=== PATIENT | female | born 1980 | race Hispanic/Latino ===

== ENCOUNTER 2018-05-22 04:25 | Inpatient (IN) | payer OTHER ==
[2018-05-21 12:07] LABS: RPR Titer ND
[2018-05-21 12:13] LABS: Urine Appearance CLEAR; Urine Bilirubin NEGATIVE (NEG); Urine Blood NEGATIVE (NEG); Urine Color YELLOW; Urine Glucose NEGATIVE (NEG); Urine Protein NEGATIVE (NEG); Urine Urobilinogen 0.2 mg/dL (0.2-1.0)
[2018-05-21 12:15] LABS: Urine Microscopic Reflex ORDER UMIC
[2018-05-21 12:16] LABS: Absolute Lymphocytes (CBC) 2.1 K/uL (0.7-4.9); Absolute Monocytes 0.9 K/uL (0.1-1.3); Absolute Neutrophil 7.9 K/uL (1.8-8.0); Basophils % 0.5 % (0-1.3); Eosinophils % 0.6 % (0-4.4); Hematocrit 35.3 % (36.0-45.0); Lymphocytes % 18.6 % (15.3-44.8); MCH 29.6 pg (27.0-35.0); MPV 9.3 fL (7.6-11.3); Monocytes % 8.6 % (3.3-12.3); RBC Red Blood Cell Count 4.02 M/uL (3.86-4.86)
[2018-05-21 12:17] LABS: Protime INR 0.89
[2018-05-21 13:09] LABS: Urine Bacteria 20-50 /HPF (<20); Urine Culture Reflex Order REFLEXED; Urine RBC <5 /HPF (NONE SEEN)
--- NOTE | 2018-05-21 15:45 | PREOPHP ---
Date of Admission: 05/22/2018 History Of Present Illness: A 37-year-old, [place] female, 2, para 1, previous C-sectio n in [place]. No family history significant today's visit or during the . Full preop erative counseling concerning procedure and possible complications including infection; blood loss; a nesthetic complications; injury to bladder, bowel, ureter; postoperative complications; clots in legs ; pneumonia. The patient knows fully well this does not constitute all the possible problems that co uld occur during or following surgery. Allergies: SHE IS ALLERGIC TO PENICILLIN. WE USE CLEOCIN FOR PROPHYLAXIS. Medications: vitamins prior to admission. Social History: Does not smoke. Physical Examination: HEENT: Clear. Pupils equal, round, and reactive to light and accommodation. Conjunctivae well perf used. No oral, lingual, or buccal lesions. Abdomen: Baby is vertex, well applied to the cervix. Extremities: Clear. The patient does have pyogenic granuloma on one of her fingers on the left hand . We will send her to management consultant to confirm this, but it looks pretty classic. We will proceed with repeat section on Friday of this week. ANANT/MARY ALICE Voice ID: [id number]
[2018-05-21 20:28] LABS: RPR (Rapid Plasma Reagin) NON-REACT (NON-REACT)
[~2018-05-22 04:25] MED LIST: CLINDAMYCIN INJ 900 MG in NA CHLORIDE 0.9% 50 ML IV ONE
[2018-05-22] MEDS ORDERED: Ringers Lactate 1,000 ML IV PRN (05:20)
[2018-05-22] MEDS ORDERED: NA CIT/CITRIC AC 30 ML ORAL UDC PO ONE (05:24)
[2018-05-22] MEDS ORDERED: FAMOTIDINE 20 MG/2 ML VIAL IV ONE ×2 (05:25→05:32)
[2018-05-22] MEDS ORDERED: METOCLOPRAMIDE 10 MG/2mL INJ ONE (05:31)
[2018-05-22] MEDS ORDERED: Ringers Lactate 1,000 ML IV ONE (05:32)
[2018-05-22] MEDS ORDERED: CLINDAMYCIN 900MG/D5W 900 MG/50 ML BAG IV ONE (05:32)
[2018-05-22] MEDS ORDERED: NA CIT/CITRIC AC 30 ML ORAL UDC ONE (05:32)
[2018-05-22] MEDS ORDERED: METOCLOPRAMIDE 10 MG/2mL INJ IV SCH (06:00)
[2018-05-22] MEDS ORDERED: Ringers Lactate 1,000 ML IV SCH (06:00)
[2018-05-22 06:06] VITALS: BMI 38.9
[2018-05-22] MEDS ORDERED: CARBOPROST TROME 250 MCG/ML IM ONE (06:23)
[2018-05-22] MEDS ORDERED: METHYLERGONOVINE 0.2MG/ML AMP IM ONE (06:24)
[2018-05-22] MEDS ORDERED: EPHEDRINE SULF 50 MG/ML SYR ONE (07:06)
[2018-05-22] MEDS ORDERED: MORPHINE SULFATE/PF 1 MG/ML (10 ML AMP) ONE (07:06)
[2018-05-22] MEDS ORDERED: OXYTOCIN 10 UNIT/ML ML IV ONE (07:06)
[2018-05-22] MEDS ORDERED: NS 0.9% VIAL 10 ML ONE (07:06)
[2018-05-22] MEDS ORDERED: LIDOCAINE 1% MPF 5 ML VIAL ONE (07:14)
[2018-05-22] MEDS ORDERED: BUPIVACAINE 0.75% (PF) 2 ML SP ONE (07:14)
[2018-05-22] MEDS ORDERED: ONDANSETRON HCL 40 MG/20 ML VIAL ONE (07:40)
[2018-05-22] MEDS ORDERED: KETAMINE HCL 500 MG/5 ML VIAL ONE (07:48)
[2018-05-22] MEDS ORDERED: MIDAZOLAM HCL 2 MG/2 ML INJ ONE ×2 (07:50→07:53)
[2018-05-22] MEDS ORDERED: FENTANYL CITR 250 MCG/5 ML ONE (07:51)
[2018-05-22] MEDS ORDERED: PROPOFOL 200 MG/20 ML VIAL IV ONE (08:00)
[2018-05-22] MEDS ORDERED: BISACODYL 10 MG RECTAL SUPP RECT PRN (08:27)
[2018-05-22] MEDS ORDERED: ONDANSETRON 4 MG (ODT) TAB PO PRN (08:27)
[2018-05-22] MEDS ORDERED: KETOROLAC 30 MG/ML INJ IM PRN (08:27)
[2018-05-22] MEDS ORDERED: DIPHENHYDRAMINE 25 MG TAB/CAP PO PRN (08:27)
[2018-05-22] MEDS ORDERED: ACETAMINOPHEN 500 MG TAB PO PRN (08:27)
[2018-05-22] MEDS ORDERED: ONDANSETRON 4 MG/2 ML VIAL IV PRN (08:27)
[2018-05-22] MEDS ORDERED: Oxycodone HCl/Acetaminophen 1 TAB TAB PO PRN ×2 (08:27)
[2018-05-22] MEDS ORDERED: OXYTOCIN/LR 20 UNIT/1,000 ML BAG IV SCH (09:00)
[2018-05-22] MEDS ORDERED: NALOXONE 0.4 MG/ML VIAL IV PRN (09:43)
[2018-05-22] MEDS ORDERED: D5LR 1,000 ML with OXYTOCIN 20 UNIT IV SCH ×2 (14:00)
--- NOTE | 2018-05-22 14:13 | OP ---
Surgeon: Kaden Wallace MD Indications: A 37-year-old, 2, para 1, previous section for repeat section . Infection, blood loss, anesthetic complications, injury to bladder, bowel, ureter, postoperative c omplications, clots in legs, and pneumonia were discussed. The patient knows fully well this does no t constitute all the possible problems that could occur during or following surgery. Knows with each surgery the risk for complications is higher. Spinal block anesthesia, Dr. Jeffries and group. Cost Engineer Surgeon: Dr. Vogel. Description Of Procedure: After prepping and draping, time-out was performed. Low transverse uterin e incision was created over previous incision site. The incision was carried to the fascia. Fascia was incised and incision carried transversely bilaterally. Anterior fascial plane was developed with both blunt and sharp dissection. The underlying rectus muscle was and peritoneum, a defec t was found and enlarged low transverse uterine incision was created. An 8 pounds 2 ounce male infan t was delivered without difficulties. Apgars 9 and 9. Cord blood specimen was obtained. The placen ta was removed manually. Uterus cleared of clot and blood and exteriorized. Uterus explored and not ed to have no further membranes or placental tissues. Cervical os was dilated with ring clamp. The uterus closed with a running-locked stitch of 1 chromic followed by 2-3 stitches in the left angle an d 5-6 stitches in the right angle for complete hemostasis. Estimated blood loss during procedure was 900-1000 cc. Uterus was replaced in the peritoneal cavity. After gutters clear of clot and blood. Reinspection of suture line showed no further bleeding. Muscles were then closed with 3 sutures of 0 Vicryl reapproximating the rectus muscles to the midline. Fascia was closed with 1 PDS running fro m either angle to midline. Subcutaneous tissue was closed with 2-0 plain. Absorbable jesika were p laced and then metal jesika. The patient had been given 900 mg of Cleocin for prophylaxis. The pat ient tolerated all procedures well. She was transferred back to her room in good condition. Final Diagnoses: 1.Term intrauterine . 2.Repeat section. 3.Spinal block anesthesia. ANANT/MARY ALICE Voice ID: [id number] Report ID: [id number]
[2018-05-22] MEDS ORDERED: CLINDAMYCIN PHOSPHATE 900 MG in NA CHLORIDE 0.9% 50 ML IV ONE (16:00)
[2018-05-22] MEDS: KETOROLAC 30 MG/ML INJ IV PRN (20:25)
[2018-05-22] MEDS ORDERED: miSOPROStol 100 MCG TAB ONE (22:59)
[2018-05-23] MEDS: KETOROLAC 30 MG/ML INJ IV PRN (07:45)
[2018-05-23] MEDS ORDERED: MAGNESIUM HYDROXIDE 8% 30 ML PO PRN (08:27)
[2018-05-23 12:08] LABS: HBsAG Nonreactive (Nonreactive)
[2018-05-24 05:46] VITALS: TEMP 96.9
[2018-05-24] MEDS ORDERED: IBUPROFEN 400 MG TAB PO PRN (09:09)
[2018-05-24 09:26] VITALS: BP 116/71
[2018-05-24] MEDS ORDERED: IBUPROFEN 200 MG TAB PO ONE (09:38)
--- NOTE | 2018-05-25 08:43 | DS ---
Date of Discharge: 05/24/2018 Hospital Course: A 37-year-old, 2, para 1, 39 weeks, delivered an 8 pounds, 2 ounce male inf ant via repeat section. Spinal block anesthesia. Apgars 9 and 9. Blood loss 900 cc. Ana sanjana for prophylaxis. Rh negative. Baby was also Rh negative. Afebrile, ambulating, voiding. Lochi a is normal. Dismissed to return to my office on or Friday of next week to report any tempe rature elevation of 100 degrees or greater, severe pain, heavy bleeding, or any other type of abnorma lities. Dismissed with tramadol for analgesia. Full instructions given. No postspinal block proble ms. Final Diagnoses: 1.Term intrauterine . 2.Repeat section. 3.Spinal block anesthesia. ANANT/MARY ALICE Voice ID: [id number] Report ID: [id number]
--- NOTE | 2018-05-25 08:49 | PN ---
Postoperatively, the patient has done quite well. H and H with minimal change. Lochia is normal. V ital signs are all stable. We will discontinue Barraza and IV. Baby is Rh negative; therefore, patien t will not need RhoGAM. She has no complaints or problems this morning. We will send her home [facility]. To return to my office in 1 week for followup. ANANT/MARY ALICE Voice ID: [id number] Report ID: [id number]
== END 2018-05-24 11:15 | disposition home or self-care (01) | DRG 766 ==
LOC: 2ND-WC 04:25
PROVIDERS: ADMIT Specialist; ATTEND Specialist
PROC: 10D00Z1 Extraction of Products of Conception, Low, Open Approach (ICD-10-PCS; principal; 2018-05-22 07:30)
DX: O34.211 Maternal care for low transverse scar from previous cesarean delivery (principal); N85.8 Other specified noninflammatory disorders of uterus; Z3A.39 39 weeks gestation of pregnancy; Z37.0 Single live birth; Z88.0 Allergy status to penicillin
CPT/HCPCS: 36415; 81003; 81015; 85014; 85025; 85610; 85730; 86592; 86850; 86900; 86901; 87086; 87088; 87340; 88305; J2210; J2250; J2405; J2590; J2765; S0077